=== PATIENT | male | born 1935 | race Caucasian/White ===

== ENCOUNTER 2017-03-14 08:55 | Emergency (ER) | payer OTHER ==
[~2017-03-14] VITALS: Ht 177.8 cm; Wt 96.6 kg
[~2017-03-14 08:55] MED LIST: AMOXIL 875 MG875 M1 PO; ANCEF 1GM1 GM/50 M1 IVPB; ANTIVERT12.5 MG; ASPIRIN EC81 M1 PO; ASPIRIN325 PO; AUGMENTIN 875875 MG PO; FISH OIL 1,0001 EAC5 PO; GLUCOPHAGE500 MG PO; ISOSORBIDE DINI30 MG PO; K-DUR10 ME1 PO; LANTUS SUBQ; LASIX 40 MG TAB40 M1 OR; LEVOTHYROXINE0.05 MG PO; LISINOPRIL5 MG PO; LOPRESSOR25 PO; LORTAB 7.5/5001 TA3 OR; NORCO 5-325 TA1 EACH PO; NOVOLOG100 UNIT/1 SUBQ; PACERONE 200 M200 M1 PO; PERCOCET 5-3251 EACH PO; PHISOHEX148 ML; PRADAXA150 MG PO; PROAIR HFA8.5 GM INH; VITAMIN D32000 UNI1 PO; ZETIA10 MG PO; ZOCOR 20 MG TAB20 M1 PO
[2017-03-14] MEDS ORDERED: PERCOCET 5-3251 EACH PO (13:52)
== END 2017-03-14 14:14 | disposition home or self-care (01) ==
LOC: ER 08:55
DX: S62.102A Fracture of unspecified carpal bone, left wrist, initial encounter for closed fracture (principal); M25.552 Pain in left hip; I10 Essential (primary) hypertension; E11.9 Type 2 diabetes mellitus without complications; Z95.1 Presence of aortocoronary bypass graft; Z98.890 Other specified postprocedural states; Z86.79 Personal history of other diseases of the circulatory system; W01.0XXA Fall on same level from slipping, tripping and stumbling without subsequent striking against object, initial encounter; Y93.89 Activity, other specified; Y92.89 Other specified places as the place of occurrence of the external cause; Y99.8 Other external cause status

== ENCOUNTER 2017-07-01 06:04 | Inpatient (IN) | payer OTHER ==
[2017-07-01] VITALS (49 sets, daily range): BP systolic 87–180; BP diastolic 45–136
[~2017-07-01] VITALS: Ht 177.8 cm; Wt 95.0 kg
--- NOTE | ~2017-07-01 | EKG ---
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: partha cosme : 1935 Requested By: Miguel Velazco Order Number: [id number] MD: Ihsan Guzman Measurements Intervals [place] Rate: 33 P: [place]: QRS: 102 QRSD: 137 T: 46 QT: 621 QTc: 461 Interpretive Statements 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
--- NOTE | ~2017-07-01 | CATHLAB ---
Formerly [facility] [address] [place] [address] INVASIVE PROCEDURE REPORT Name: DANIELLE JAMESON Memo Room #: 247-[facility].#: [id number] Admission: 07/01/17 Attend Phys: Raghu Gibson Discharge: 07/02/17 Date of : 37 Date of Service: 07/02/171943 Report #: [id number] THIS REPORT FOR: //name// APPROVED REPORT Patient Details Patient Status: In-Patient Room #: The patient is a 81 year-old male Event Personnel Antoni Kennedy Rehabilitation Specialist, Alicia Cook RTR Monitor, Ene Henson RN Monitor, Pepe Zamudio RN, Светлана aSnders Scrub Procedures Performed Mateo Access - R femoral vein Temporary Pacemaker Lead Inserted under flouroscopic guidance 3648021 TPI Indication Syncope, COMPLETE HEART BLOCK Previous Procedures/Diagnoses Previous CABG, Previous Valve Surgery Procedure Narrative The patient was brought urgently to the Cardiac Catheterization Laboratory and was prepped and draped in a sterile manner. The Right Groin^ was infiltrated with 1% Lidocaine subcutaneous anesthesia. A PINNACLE 5FR Sheath #[id number] sheath was inserted into the RFV 5fr sheath^. Coronary angiography was performed using coronary diagnostic catheters. The patient tolerated the procedure well and there were no complications associated with the procedure. There was no hematoma. CAPTURE THRESHOLD 0.2 Fluoro Time: 1.04 minutes Dose: DAP 1312.60 cGycm2 71 mGy Conclusion 1. SUCCESSFUL PLACEMENT OF A TRANSVENOUS TEMPORARY PACING WIRE 2. FINAL SETTINGS: DEMAND Formerly [facility] [address] [place] [address] INVASIVE PROCEDURE REPORT Name: DANIELLE JAMESON Room #: 247-P [facility] IN M.R.#: [id number] Admission: 07/01/17 Attend Phys: Raghu Gibson Discharge: 07/02/17 Date of : 37 Date of Service: 07/02/171943 Report #: [id number] RATE: 80 bpm OUTPUT: 5 mv <ELECTRONICALLY SIGNED> By: Antoni Kennedy MD 07/02/171943 43 43 Antoni Kennedy MD /INF
--- NOTE | ~2017-07-01 | EKG ---
[address] [place] [address] ELECTROCARDIOGRAM REPORT Name: DANIELLE JAMESON Room #: 247-[facility] IN M.R.#: [id number] Admission: 07/01/17 Attend Phys: Raghu Malhotra Discharge: 07/02/17 Date of : 37 Report #: [id number] THIS REPORT FOR: //name// [facility] ED Test Date: 2017-07-01 Test Time: 06:27:20 Pat Name: DANIELLE JAMESON Department: Room: 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 07/02/17 1344 0627 0627 Ihsan Guzman MD, [facility] /EPI
[2017-07-01 06:28] LABS: HEMATOCRIT 41.2 % (42.0-52.0); HEMOGLOBIN 13.3 gm/dL (14.0-18.0); MCH 28.4 pg (26.0-34.0); MCHC 32.3 g/dL (28.0-37.0); RBC 4.69 mil/uL (4.50-6.00); RDW 15.8 % (10.5-14.5); WBC 12.2 thou/uL (4.0-11.0)
[2017-07-01 06:43] LABS: APTT 25.9 Seconds (24.5-32.8); PROTIME 10.3 Seconds (9.3-11.4)
[2017-07-01 06:49] LABS: CALCIUM 9.4 mg/dL (8.5-10.1); CREATININE 1.9 mg/dL (0.7-1.3); POTASSIUM 5.1 mmol/L (3.5-5.1)
[2017-07-01 06:50] LABS: ALBUMIN 3.4 g/dL (3.4-5.0); DIRECT BILIRUBIN 0.1 mg/dL (<0.1-0.3); TOTAL BILIRUBIN 0.6 mg/dL (<0.1-1.0); TOTAL PROTEIN 7.2 g/dL (6.4-8.2); TROPONIN-I 0.19 ng/mL (<0.04-0.07)
[2017-07-01 07:11] LABS: ABG SAMPLE TYPE ARTERIAL; BE(vivo) -6.9 mmol/L (-2 to +3); HCO3 17.8 mmol/L (22.0-26.0); LACTATE 2.94 mmol/L (0.5-2.0); O2(CT) 17.7 mL/dL (15.0-23.0); O2Hb 94.3 % (92.0-98.0); PCO2 33.5 mmHg (35.0-45.0); STICK SITE L.RADIAL; pH 7.343 (7.360-7.450); sO2 95.9 % (92.0-98.0); tCO2 18.8 mmol/L (24.0-30.0)
[2017-07-01 17:54] LABS: ABG SAMPLE TYPE ARTERIAL; BE(vivo) 0.3 mmol/L (-2 to +3); HCO3 24.7 mmol/L (22.0-26.0); LACTATE 1.71 mmol/L (0.5-2.0); O2(CT) 18.4 mL/dL (15.0-23.0); O2Hb 94.6 % (92.0-98.0); PCO2 39.2 mmHg (35.0-45.0); PO2 79.8 mmHg (80.0-100.0); STICK SITE R.RADIAL; pH 7.417 (7.360-7.450); tCO2 25.9 mmol/L (24.0-30.0)
[2017-07-02 00:14] VITALS: BP 111/61
[2017-07-02 01:00] VITALS: BP 108/61
[2017-07-02 01:03] VITALS: BP 104/67
[2017-07-03 00:05] LABS: GLYCOHEMOGLOBIN (HGB A1C) 11.1 % (4.8-5.6)
== END 2017-07-02 01:20 | disposition short-term general hospital (02) | DRG 286 ==
LOC: ER 06:04 → EROBS 08:00 → ICU 08:16
PROVIDERS: Emergency Medicine; Hospitalist
PROC: B2111ZZ Fluoroscopy of Multiple Coronary Arteries using Low Osmolar Contrast (ICD-10-PCS; principal; 2017-07-02)
PROC: 5A1223Z Performance of Cardiac Pacing, Continuous (ICD-10-PCS; principal; 2017-07-02)
DX: I44.2 Atrioventricular block, complete (principal); I62.00 Nontraumatic subdural hemorrhage, unspecified; N17.9 Acute kidney failure, unspecified; I10 Essential (primary) hypertension; I25.10 Atherosclerotic heart disease of native coronary artery without angina pectoris; E78.00 Pure hypercholesterolemia, unspecified; E11.65 Type 2 diabetes mellitus with hyperglycemia; T44.7X5A Adverse effect of beta-adrenoreceptor antagonists, initial encounter; I95.9 Hypotension, unspecified; Z95.1 Presence of aortocoronary bypass graft; Z95.2 Presence of prosthetic heart valve; Y92.89 Other specified places as the place of occurrence of the external cause; Z82.49 Family history of ischemic heart disease and other diseases of the circulatory system; Z83.6 Family history of other diseases of the respiratory system
CPT/HCPCS: 10078

== ENCOUNTER 2019-01-21 14:25 | Emergency (ER) | payer OTHER ==
[~2019-01-21] VITALS: Ht 177.8 cm; Wt 76.7 kg
[2019-01-21 14:51] LABS: HEMATOCRIT 34.1 % (42.0-52.0); HEMOGLOBIN 11.4 gm/dL (14.0-18.0); MCH 28.5 pg (26.0-34.0); MCHC 33.3 g/dL (28.0-37.0); MCV 85.7 fL (80.0-100.0); RBC 3.98 mil/uL (4.50-6.00); RDW 18.1 % (10.5-14.5); WBC 7.5 thou/uL (4.0-11.0)
[2019-01-21 14:59] LABS: ANION GAP 7 mmol/L (7-16); BUN 33 mg/dL (7-18); CALCIUM 9.3 mg/dL (8.5-10.1); CHLORIDE 101 mmol/L (98-107); CO2 27 mmol/L (21-32); CREATININE 1.2 mg/dL (0.7-1.3); GLUCOSE 212 mg/dL (74-106); POTASSIUM 5.2 mmol/L (3.5-5.1); SODIUM 135 mmol/L (136-145)
[2019-01-21 15:08] LABS: MAGNESIUM 1.7 mg/dL (1.8-2.4); TROPONIN-I <0.06 ng/mL (<0.06)
[2019-01-21] MEDS ORDERED: PACERONE 200 M200 M1 PO (15:12)
[2019-01-21] MEDS ORDERED: VENTOLIN HFA 1818 GM INH (15:12)
[2019-01-21] MEDS ORDERED: TESSALON PERLE100 MG PO (15:12)
[2019-01-21] MEDS ORDERED: APAP650 PO (15:12)
[2019-01-21] MEDS ORDERED: COLACE100 MG PO (15:13)
[2019-01-21] MEDS ORDERED: ERGOCALCIF50000 UNIT PO (15:13)
[2019-01-21] MEDS ORDERED: CEFDINIR300 MG PO (15:13)
[2019-01-21] MEDS ORDERED: FLOVENT HFA 4444 MCG INH (15:14)
[2019-01-21] MEDS ORDERED: LEVEMIR SUBQ (15:14)
[2019-01-21] MEDS ORDERED: LEXAPRO 10 MG T10 M1 PO (15:14)
[2019-01-21] MEDS ORDERED: HUMALOG100 UNIT/1 SUBQ (15:14)
[2019-01-21] MEDS ORDERED: SYNTHROID75 MCG PO (15:14)
[2019-01-21] MEDS ORDERED: FLOMAX0.4 MG PO (15:15)
[2019-01-21] MEDS ORDERED: MELATONIN3 MG PO (15:15)
[2019-01-21] MEDS ORDERED: METFORMIN HCL500 MG PO (15:15)
[2019-01-21] MEDS ORDERED: MIDODRINE HCL 55 M1 PO (15:15)
[2019-01-21] MEDS ORDERED: PROTONIX40 M1 PO (15:15)
[2019-01-21 15:42] VITALS: BP 105/63
--- NOTE | 2019-01-21 17:15 | EKG ---
[facility] [place] [address] [place] [address] ELECTROCARDIOGRAM REPORT Name: TESSA JAMESONSHIVANI Hampton [facility] [id number] ������������������ Admission: 01/21/19 ������������������ Attend Phys: Discharge: 01/21/19 ������������������ Date of : 37 Report #: [id number] ����������������������������������������������������������������� [id number] THIS REPORT FOR: //name// [facility] ED Test Date: 2019-01-21 Test Time: 14:44:29 Pat Name: DANIELLE JAMESON Department: Room: Gender: Financial Aid Officer: chano kay : 1935 Requested By: Jigar Davis Order Number: [id number] MD: Ihsan Guzman Measurements Intervals [place] Rate: 66 P: 59 [place]: 78 QRS: 96 QRSD: 144 T: 61 QT: 465 QTc: 488 Interpretive Statements Sinus rhythm Prolonged [place] interval RBBB and LPFB Compared to ECG 07/01/2017 06:27:20 Right bundle-branch block now present AV block, complete (third-degree) no longer present Left bundle-branch block no longer present Electronically Signed On 01-21-2019 17:15:02 CDT by Ihsan Guzman [email or web address] ��������������������������������������������� <ELECTRONICALLY SIGNED> ���������������������������������������� By: Ihsan Guzman MD, [facility] ��������������������������������������������� 01/21/19 1715 1444 1444 Ihsan Guzman MD, [facility] /EPI
== END 2019-01-21 15:56 | disposition home or self-care (01) ==
LOC: ER 14:25
PROVIDERS: Emergency Medicine
DX: E87.5 Hyperkalemia (principal); E83.42 Hypomagnesemia; I10 Essential (primary) hypertension; I25.10 Atherosclerotic heart disease of native coronary artery without angina pectoris; E11.9 Type 2 diabetes mellitus without complications; E78.00 Pure hypercholesterolemia, unspecified; Z95.1 Presence of aortocoronary bypass graft; Z79.4 Long term (current) use of insulin